=== PATIENT | male | born 1990 | race African-American/Black ===

== ENCOUNTER 2017-01-13 05:51 | Emergency (ER) | payer OTHER ==
[2017-01-13 06:05] VITALS: BMI 20.5
--- NOTE | 2017-01-13 06:07 | PDOC ---
History of Present Illness - General Chief Complaint: Shortness of Breath Stated Complaint: S.O.B. Time Seen by Provider: 01/13/17 06:01 History Source: Patient Exam Limitations: No Limitations - History of Present Illness Initial Comments: 01/13/17 06:09 26-year-old male without any medical history presents to the emergency department without any complaints. Patient states he was experiencing midsternal 6/10 dull nonradiating intermittent discomfort which was exacerbated on touch and alleviated at rest without fever, chills, nausea/vomiting/diarrhea , jaw pain, neck pain, shortness of breath, abdominal pains, ext numbness or tingling sensation. Patient states the pain has subsided 100% 5-7 days ago but decided to come to the emergency department to be checked out anyway. Patient states the pain started 3 weeks ago after throwing rolled up a newspaper over his head/while extending his left arm while. Pt delivers newspaper in the mornings. Patient denies recent surgery, prolonged sitting, recent flight. Presenting Symptoms: Chest Pain (x1week ago) Timing/Duration: reports: resolved prior to arrival Severity/Quality: reports: mild Location: reports: substernal Chest Pain Radiation: reports: no radiation Activities at Onset: reports: exertion Prior Chest Pain/Cardiac Workup: reports: No prior chest pain Past History - Travel Traveled outside of the country in the last 30 days: No Close contact w/someone who was outside of country & ill: No - Past Medical History Allergies/Adverse Reactions: Allergies Allergy/AdvReac Type Severity Reaction Status Date / Time No Known Allergies Allergy Verified 01/13/17 06:01 Home Medications: Ambulatory Orders Ibuprofen 600 mg PO Q6H PRN #18 tablet 08/30/16 Disorders: Yes (UTI) Suicide Attempt (Hx): No - Immunization History Immunization Up to Date: Yes - Psycho/Social/Smoking Cessation Hx Anxiety: No Suicidal Ideation: No Smoking Status: No Smoking History: Never smoked Have you smoked in the past 12 months: No Number of Cigarettes Smoked Daily: 3 Information on smoking cessation initiated: No Hx Alcohol Use: No Drug/Substance Use Hx: No Substance Use Type: Alcohol, Marijuana Review of Systems - Review of Systems Able to Perform ROS?: Yes Comments:: 01/13/17 06:08 CONSTITUTIONAL: Absent: fever, chills, diaphoresis, generalized weakness, malaise, loss of appetite HEENT: Absent: rhinorrhea, nasal congestion, throat pain, throat swelling, difficulty swallowing, mouth swelling, ear pain, eye pain, visual Changes CARDIOVASCULAR: Absent: chest pain, loss of consciousness, palpitations, irregular heart rate, peripheral edema RESPIRATORY: Absent: cough, shortness of breath, dyspnea with exertion, orthopnea, wheezing, stridor, hemoptysis GASTROINTESTINAL: Absent: abdominal pain, abdominal distension, nausea, vomiting, diarrhea, constipation, melena, hematochezia GENITOURINARY: Absent: dysuria, frequency, urgency, hesitancy, hematuria, flank pain, genital pain MUSCULOSKELETAL: Absent: myalgia, arthralgia, joint swelling SKIN: Absent: rash, itching, pallor HEMATOLOGIC/IMMUNOLOGIC: Absent: easy bleeding, easy bruising, lymphadenopathy, frequent infections ENDOCRINE: Absent: unexplained weight gain, unexplained weight loss, heat intolerance, cold intolerance NEUROLOGIC: Absent: headache, focal weakness or paresthesias, dizziness, unsteady gait, seizure, mental status changes, bladder or bowel incontinence PSYCHIATRIC: Absent: anxiety, depression, suicidal or homicidal ideation, hallucinations. Is the patient limited Portuguese proficient: No *Physical Exam - Vital Signs Last Vital Signs Temp Pulse Resp BP Pulse Ox 97.5 F L 78 20 122/79 99 01/13/17 06:03 01/13/17 06:03 01/13/17 06:03 01/13/17 06:03 01/13/17 06:03 - Physical Exam Comments: 01/13/17 06:08 GENERAL: Well developed, well nourished. Awake and alert. No acute distress. HEENT: Normocephalic, atraumatic. PERRLA, EOMI. No conjunctival pallor. Sclera are non- icteric. Moist mucous membranes. Oropharynx is clear. NECK: Supple. Full ROM. No JVD. Carotid pulses 2+ and symmetric, without bruits. No thyromegaly. No lymphadenopathy. CARDIOVASCULAR: Regular rate and rhythm. No murmurs, rubs, or gallops. Distal pulses are 2+ and symmetric. PULMONARY: No evidence of respiratory distress. Lungs clear to auscultation bilaterally. No wheezing, rales or rhonchi. ABDOMINAL: Soft. Non-tender. Non-distended. No rebound or guarding. No organomegaly. Normoactive bowel sounds. MUSCULOSKELETAL Normal range of motion at all joints. No bony deformities or tenderness. No CVA tenderness. EXTREMITIES: No cyanosis. No clubbing. No edema. No calf tenderness. SKIN: Warm and dry. Normal capillary refill. No rashes. No jaundice. NEUROLOGICAL: Alert, awake, appropriate. Cranial nerves 2-12 intact. No deficits to light touch and temperature in face, upper extremities and lower extremities. No motor deficits in the in face, upper extremities and lower extremities. Normoreflexic in the upper and lower extremities. Normal speech. Toes are down- going bilaterally. Gait is normal without ataxia. PSYCHIATRIC: Cooperative. Good eye contact. Appropriate mood and affect. Heart Score/ECG Review - History History: Slightly suspicious - Electrocardiogram EKG: Normal (peaked T waves V4 and V5) - Age Age: >/= 65 - Risk Factors Based on the list above the patient has:: No risk factors known - Troponin Troponin: </= normal limit - Score Heart Score - Total: 2 - ECG Intrepretation Rhythm: Regular Rhythm ED Treatment Course - LABORATORY CBC & Chemistry Diagram: 01/13/17 06:20 01/13/17 06:20 - ADDITIONAL ORDERS Additional order review: Laboratory Results 01/13/17 01/13/17 06:20 06:20 Sodium 141 Potassium 4.1 Chloride 104 Carbon Dioxide 29 Anion Gap 8 BUN 13 D Creatinine 1.1 Creat Clearance w eGFR > 60 Random Glucose 76 D Calcium 8.9 Total Bilirubin 0.3 D AST 19 ALT 17 D Alkaline Phosphatase 49 Creatine Kinase 282 Creatine Kinase Index 0.6 CK-MB (CK-2) 1.588 CK-MB (CK-2) Rel Index Cancelled Troponin I < 0.02 Total Protein 7.3 Albumin 4.2 01/13/17 06:20 RBC 4.28 MCV 93.1 MCHC 32.9 RDW 13.3 MPV 9.8 Neutrophils % 39.5 L D Lymphocytes % 44.9 H D Monocytes % 9.1 Eosinophils % 5.8 H D Basophils % 0.7 - RADIOLOGY Radiology Studies Ordered: Category Date Time Status CHEST PA & LAT [RAD] Stat Radiology 01/13/17 06:23 Ordered *DC/Admit/Observation/Transfer Diagnosis at time of Disposition: No complaint of pain, Chest discomfort - Discharge Dispostion Disposition: HOME Condition at time of disposition: Stable Admit: No - Referrals Referrals: Luis Enrique Lyn MD [Primary Care Provider] - Macario Delgado MD [Staff Physician] - - Patient Instructions Printed Discharge Instructions: DI for Atypical Chest Pain Additional Instructions: Follow-up with your primary care physician and the brewmaster listed on your discharge. Return back to the emergency department for recurrent
[2017-01-13 06:40] LABS: BASOPHIL 0.7 % (0-2.0); EOSINOPHIL 5.8 % (0-4.5); MCH 30.7 pg (25.7-33.7); MCHC 32.9 g/dl (32.0-35.9); MEAN CELL VOLUME 93.1 fl (80-96); MEAN PLT VOLUME 9.8 fl (7.5-11.1); NEUTROPHILS 39.5 % (42.8-82.8); PLATELET COUNT 153 K/MM3 (134-434); RDW 13.3 % (11.9-15.9); WHITE BLOOD COUNT 6.4 K/mm3 (4.0-10.0)
[2017-01-13 06:59] LABS: ALBUMIN 4.2 g/dl (3.4-5.0); ANION GAP 8 (8-16); BILIRUBIN,TOTAL 0.3 mg/dL (0.2-1.0); CALCIUM 8.9 mg/dL (8.5-10.1); CO2 29 mmol/L (21-32); COCKROFT - GAULT 102.63; CREATININE 1.1 mg/dL (0.7-1.3); GLUCOSE,RANDOM 76 mg/dL (74-106); SGOT/AST 19 U/L (15-37); SGPT/ALT 17 U/L (12-78); TOT PROT 7.3 g/dl (6.4-8.2)
[2017-01-13 07:02] LABS: ALK PHOS 49 U/L (45-117); TROPONIN I < 0.02 ng/ml (0.00-0.05)
[2017-01-13 08:28] VITALS: BP 129/84; PULSE 80; TEMP 97.7
--- NOTE | 2017-01-13 11:16 | EKG ---
Test Reason : Blood Pressure : / mmHG Vent. Rate : 061 BPM Atrial Rate : 061 BPM P-R Int : 216 ms QRS Dur : 104 ms QT Int : 382 ms P-R-T Axes : 072 100 046 degrees QTc Int : 384 ms SINUS RHYTHM WITH 1ST DEGREE A-V BLOCK INCOMPLETE RIGHT BUNDLE BRANCH BLOCK POSSIBLE RIGHT VENTRICULAR HYPERTROPHY ABNORMAL ECG NO PREVIOUS ECGS AVAILABLE Confirmed by ROZ URIBE MD ([id number]) on 01/13/2017 11:16:19 AM Referred By: Confirmed By:ROZ URIBE MD
== END 2017-01-13 08:31 | disposition home or self-care (01) ==
LOC: JER 05:51
DX: R07.89 Other chest pain (principal)
CPT/HCPCS: 36415; 71020-TC; 80053; 82550; 82553; 84484; 85025; 93005; 93010; 99282-25

== ENCOUNTER 2017-03-13 21:45 | Emergency (ER) | payer OTHER ==
[2017-03-13 21:56] VITALS: BP 110/54; PULSE 76; TEMP 98; BMI 20.5
--- NOTE | 2017-03-13 22:59 | PDOC ---
History of Present Illness <Meme Dixon - Last Filed: 03/13/17 22:59> - History of Present Illness Initial Comments: 03/13/17 22:59 The patient is a 26 year old male, with no significant past medical history, who presents to the emergency department with injury to his right first toe after playing basketball yesterday. The patient states he jammed his right first toe and reports pain over the nail of the right toe. He states he noticed his nail was lifted and bleeding today and presents for evaluation. He denies any other complaint at this time. Allergies: NKDA <Ann-Marie Wright - Last Filed: 03/13/17 23:00> - General Chief Complaint: Injury Stated Complaint: INJURY Time Seen by Provider: 03/13/17 22:09 Past History - Past Medical History Asthma: Yes (CHILDHOOD) Disorders: Yes (UTI) Suicide Attempt (Hx): No - Immunization History Immunization Up to Date: Yes - Psycho/Social/Smoking Cessation Hx Anxiety: No Suicidal Ideation: No Smoking Status: No Smoking History: Current every day smoker Have you smoked in the past 12 months: Yes Number of Cigarettes Smoked Daily: 3 Information on smoking cessation initiated: No Hx Alcohol Use: No Drug/Substance Use Hx: Yes (marijuana) Substance Use Type: Alcohol, Marijuana <Meme Dixon - Last Filed: 03/13/17 22:59> <Ann-Marie Wright - Last Filed: 03/13/17 23:00> - Past Medical History Allergies/Adverse Reactions: Allergies Allergy/AdvReac Type Severity Reaction Status Date / Time No Known Allergies Allergy Verified 03/13/17 21:57 Home Medications: Ambulatory Orders Sulfamethoxazole/Trimethoprim [Bactrim Ds -] 1 tab PO BID #14 tablet 03/13/17 Review of Systems - Review of Systems Able to Perform ROS?: Yes Comments:: 03/13/17 22:59 CONSTITUTIONAL: Absent: fever, no chills, no fatigue MUSCULOSKELETAL: Absent: back pain, no arthralgia, no myalgia SKIN: (+) pain to right toe. Absent: rash <Ann-Marie Wright - Last Filed: 03/13/17 23:00> *Physical Exam - Vital Signs Last Vital Signs Temp Pulse Resp BP Pulse Ox 98.0 F 76 18 110/54 98 03/13/17 21:53 03/13/17 21:53 03/13/17 21:53 03/13/17 21:53 03/13/17 21:53 <Meme Dixon - Last Filed: 03/13/17 22:59> - Vital Signs Last Vital Signs Temp Pulse Resp BP Pulse Ox 98.0 F 76 18 110/54 98 03/13/17 21:53 03/13/17 21:53 03/13/17 21:53 03/13/17 21:53 03/13/17 21:53 - Physical Exam Comments: 03/13/17 22:59 GENERAL: Well-appearing, well-nourished. No apparent distress. EXTREMITIES: (+) slightly avulsed toenail of right hallux with slight discharge, no bleeding. No erythema or warmth. Normal ROM in all four extremities. No gross deformities. SKIN: Warm, dry. No rash NEUROLOGICAL: No focal neurological deficits. <Ann-Marie Wright - Last Filed: 03/13/17 23:00> *DC/Admit/Observation/Transfer - Discharge Dispostion Admit: No <Meme Dixon - Last Filed: 03/13/17 22:59> - Attestations Scribe Attestion: 03/13/17 22:59 Documentation prepared by Ann-Marie Wright, acting as medical technologist microbiology for Emergency Dept,Meme HUNTER <Ann-Marie Wright - Last Filed: 03/13/17 23:00> Diagnosis at time of Disposition: Nailbed injury - Discharge Dispostion Disposition: HOME - Prescriptions Prescriptions: Sulfamethoxazole/Trimethoprim [Bactrim Ds -] 1 tab PO BID #14 tablet - Referrals Referrals: Quique Melton MD [Staff Physician] - - Patient Instructions Printed Discharge Instructions: DI for Nail Bed Injury Additional Instructions: Please take medication as prescribed and complete the entire course of medication. As discussed, part of your nail may come off but it will grow back. Follow up with your dye machine operator if your foot becomes red, hot, or swollen. If you develop any fever, chills, nausea, vomiting, diarrhea or any new or worsening symptoms, please return to the ER.
== END 2017-03-13 23:01 | disposition home or self-care (01) ==
LOC: JERFT 21:45
DX: S91.201A Unspecified open wound of right great toe with damage to nail, initial encounter (principal); W22.8XXA Striking against or struck by other objects, initial encounter; Y93.67 Activity, basketball; Y92.310 Basketball court as the place of occurrence of the external cause; Y99.8 Other external cause status
CPT/HCPCS: 99281-25

== ENCOUNTER 2018-07-15 08:31 | Emergency (ER) | payer SELFPAY ==
[2018-07-15 08:55] VITALS: BP 109/76; PULSE 63; TEMP 98.3; BMI 20.7
--- NOTE | 2018-07-15 09:10 | PDOC ---
History of Present Illness - General Chief Complaint: Pain, Acute Stated Complaint: FALL Time Seen by Provider: 07/15/18 09:06 History Source: Patient Exam Limitations: No Limitations - History of Present Illness Initial Comments: 07/15/18 09:53 Patient is a 28-year-old male with no past medical history who presents to the emergency department today for right leg pain status post mechanical trip and fall down a flight of steps on Sunday07/13/18. Patient states that he fell on his butt down the stairs. He states that the pain is mostly in his right quad and his right ankle. Pt states he is walking with a limp. Denies head injury, LOC, lightheadedness and dizziness. Past History - Travel Traveled outside of the country in the last 30 days: No Close contact w/someone who was outside of country & ill: No - Past Medical History Allergies/Adverse Reactions: Allergies Allergy/AdvReac Type Severity Reaction Status Date / Time No Known Allergies Allergy Verified 07/15/18 08:51 Home Medications: Ambulatory Orders Sulfamethoxazole/Trimethoprim [Bactrim Ds -] 1 tab PO BID #14 tablet 03/13/17 Ibuprofen 800 mg PO TID #30 tablet 07/15/18 Asthma: Yes (CHILDHOOD) COPD: No Disorders: Yes (UTI) - Immunization History Immunization Up to Date: Yes - Suicide/Smoking/Psychosocial Hx Smoking Status: No Smoking History: Never smoked Have you smoked in the past 12 months: Yes Number of Cigarettes Smoked Daily: 3 Hx Alcohol Use: No Drug/Substance Use Hx: Yes (marijuana) Substance Use Type: Alcohol, Marijuana Review of Systems - Review of Systems Able to Perform ROS?: Yes Comments:: 07/15/18 09:52 CONSTITUTIONAL: Absent: fever, chills, diaphoresis, generalized weakness, malaise, loss of appetite HEENT: Absent: rhinorrhea, nasal congestion, throat pain, throat swelling, difficulty swallowing, mouth swelling, ear pain, eye pain, visual Changes CARDIOVASCULAR: Absent: chest pain, loss of consciousness, palpitations, irregular heart rate, peripheral edema RESPIRATORY: Absent: cough, shortness of breath, dyspnea with exertion, orthopnea, wheezing, stridor, hemoptysis GASTROINTESTINAL: Absent: abdominal pain, abdominal distension, nausea, vomiting, diarrhea, constipation, melena, hematochezia GENITOURINARY: Absent: dysuria, frequency, urgency, hesitancy, hematuria, flank pain, genital pain MUSCULOSKELETAL: Present: R leg pain Absent: myalgia, joint swelling SKIN: Absent: rash, itching, pallor HEMATOLOGIC/IMMUNOLOGIC: Absent: easy bleeding, easy bruising, lymphadenopathy, frequent infections ENDOCRINE: Absent: unexplained weight gain, unexplained weight loss, heat intolerance, cold intolerance NEUROLOGIC: Absent: headache, focal weakness or paresthesias, dizziness, unsteady gait, seizure, mental status changes, bladder or bowel incontinence PSYCHIATRIC: Absent: anxiety, depression, suicidal or homicidal ideation, hallucinations. Is the patient limited Georgian proficient: No *Physical Exam - Vital Signs Last Vital Signs Temp Pulse Resp BP Pulse Ox 98.3 F 63 18 109/76 99 07/15/18 08:52 07/15/18 08:52 07/15/18 08:52 07/15/18 08:52 07/15/18 08:52 - Physical Exam Comments: 07/15/18 09:10 GENERAL: Well developed, well nourished. Awake and alert. No acute distress. HEENT: Normocephalic, atraumatic. PERRLA, EOMI. No conjunctival pallor. Sclera are non- icteric. Moist mucous membranes. Oropharynx is clear. NECK: Supple. Full ROM. No JVD. Carotid pulses 2+ and symmetric, without bruits. No thyromegaly. No lymphadenopathy. MUSCULOSKELETAL Pain with straight leg raise to the R quad. R knee mildly swollen. TTP of the Lateral R malleolus. Pain with dorsiflexion. No swelling noted to the R ankle. Normal range of motion at all other joints. No bony deformities or tenderness. No CVA tenderness. EXTREMITIES: No cyanosis. No clubbing. No edema. No calf tenderness. SKIN: Warm and dry. Normal capillary refill. No rashes. No jaundice. NEUROLOGICAL: Alert, awake, appropriate. Cranial nerves 2-12 intact. No deficits to light touch and temperature in face, upper extremities and lower extremities. No motor deficits in the in face, upper extremities and lower extremities. Normoreflexic in the upper and lower extremities. Normal speech. Toes are down- going bilaterally. Gait is normal without ataxia. PSYCHIATRIC: Cooperative. Good eye contact. Appropriate mood and affect. Medical Decision Making - Medical Decision Making 07/15/18 10:17 Patient is a 28-year-old male with no past medical history who presents him her she department with right leg pain status post falling down a flight of stairs 2 days ago. X-ray shows a high sitting knee In the lateral view. Cannot rule out patellar tendon pathology. We'll place patient in knee immobilizer and give crutches. Ortho follow-up given. Ankle and tib-fib appear unremarkable at this time. Ankle with evidence of old fracture to the medial malleolus however no tenderness to palpation of the medial malleolus at this time. Pain improved with Motrin. Discharge home I discussed the physical exam findings, ancillary test results and final diagnoses with the patient. I answered all of the patient's questions. The patient was satisfied with the care received and felt comfortable with the discharge plan and treatment plan. The Patient agrees to follow up with the primary care physician/specialist within 24-72 hours. Return precautions were given. *DC/Admit/Observation/Transfer Diagnosis at time of Disposition: Strain of quadriceps tendon Qualifiers: Encounter type: initial encounter Laterality: right Qualified Code(s): S76.111A - Strain of right quadriceps muscle, fascia and tendon, initial encounter - Discharge Dispostion Disposition: HOME Condition at time of disposition: Stable Decision to Admit order: No - Referrals Referrals: Perry Earl MD [Staff Physician] - - Patient Instructions Printed Discharge Instructions: DI for Quadriceps Strain Additional Instructions: Your knee x-ray shows that the kneecap may be sitting a little high. This could indicate a patellar tendon injury. Please wear the knee immobilizer during the day and use the crutches. Do not place weight on the leg. Please take Motrin 800 mg every 8 hours as needed for pain. Please follow up with orthopedics this week. A referral has been provided. Return to the emergency department for worsening pain, numbness and tingling down the extremity, or if you have any changes in your symptoms. - Post Discharge Activity Forms/Work/School Notes: Back to Work
[2018-07-15] MEDS ORDERED: IBUPROFEN 400 MG TABLET (FP) PO ONE ×2 (09:26→09:30)
== END 2018-07-15 10:50 | disposition home or self-care (01) ==
LOC: JERFT 08:31
DX: S76.111A Strain of right quadriceps muscle, fascia and tendon, initial encounter (principal); W10.8XXA Fall (on) (from) other stairs and steps, initial encounter; Y93.89 Activity, other specified; Y92.89 Other specified places as the place of occurrence of the external cause; R26.89 Other abnormalities of gait and mobility
CPT/HCPCS: 73562-TC-RT-FY; 73590-TC-RT-FY; 73610-TC-RT-FY; 73630-TC-RT-FY; 99281-25

== ENCOUNTER 2019-08-31 07:49 | Emergency (ER) | payer SELFPAY ==
[2019-08-31 07:55] VITALS: BP 127/68; PULSE 71; TEMP 97.7; BMI 20.3
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
== END 2019-08-31 08:42 | disposition home or self-care (01) ==
LOC: JERFT 07:49
DX: S69.92XA Unspecified injury of left wrist, hand and finger(s), initial encounter (principal); S69.91XA Unspecified injury of right wrist, hand and finger(s), initial encounter; W22.01XA Walked into wall, initial encounter; Y93.89 Activity, other specified; Y92.89 Other specified places as the place of occurrence of the external cause; J45.909 Unspecified asthma, uncomplicated
CPT/HCPCS: 73130-TC-LT-FY; 73130-TC-RT-FY; 99282-25

== ENCOUNTER 2019-09-08 22:01 | Emergency (ER) | payer SELFPAY ==
[2019-09-08 22:12] VITALS: BP 107/54; PULSE 71; TEMP 97.6
--- NOTE | 2019-09-08 23:46 | PDOC ---
*Physical Exam - Vital Signs Last Vital Signs Temp Pulse Resp BP Pulse Ox 97.6 F 71 18 107/54 L 98 09/08/19 22:09 09/08/19 22:09 09/08/19 22:09 09/08/19 22:09 09/08/19 22:09 Medical Decision Making - Medical Decision Making 09/08/19 23:46 Patient seen by the advanced practice provider under my direct supervision. Ancillary testing reviewed as necessary. I agree with plan as outlined by the advanced practice provider. Discharge - Discharge Information Problems reviewed: Yes Clinical Impression/Diagnosis: Thumb injury Qualifiers: Encounter type: subsequent encounter Laterality: left Qualified Code(s): S69.92XD - Unspecified injury of left wrist, hand and finger(s), subsequent encounter Sprain of ulnar collateral ligament of metacarpophalangeal (MCP) joint of thumb Qualifiers: Encounter type: initial encounter Laterality: left Qualified Code(s): S63.642A - Sprain of metacarpophalangeal joint of left thumb, initial encounter Disposition: HOME - Follow up/Referral Referrals: Yinka Dumont MD [Staff Physician] - Call tomorrow Darrell Jolly MD [Primary Care Provider] - - Patient Discharge Instructions Patient Printed Discharge Instructions: DI for Ulnar Collateral Ligament Sprain of Thumb Additional Instructions: Use the thumb splint for comfort. It is very important that you follow-up with a hand doctor as soon as possible.A referral was given to you today. Take ibuprofen every 6 hours as needed for pain. Return to the emergency room for any worsening symptoms. - Post Discharge Activity Work/Back to School Note: Back to Work
[2019-09-09] MEDS ORDERED: IBUPROFEN 600 MG TABLET (FP) PO ONE ×2 (00:34→01:09)
--- NOTE | 2019-09-09 00:34 | PDOC ---
History of Present Illness - General Chief Complaint: Injury Stated Complaint: LT HAND INJURY Time Seen by Provider: 09/08/19 23:31 History Source: Patient - History of Present Illness Initial Comments: 09/09/19 29-year-old male complaining of left thumb pain worse with movement. Patient report an injury 1 week ago and was seen. X-ray at the recent visit reviewed showed no acute fracture. Patient reports that he has not followed up with orthopedic. No past medical history Past History - Past Medical History Allergies/Adverse Reactions: Allergies Allergy/AdvReac Type Severity Reaction Status Date / Time No Known Allergies Allergy Verified 09/08/19 22:12 Home Medications: Ambulatory Orders Sulfamethoxazole/Trimethoprim [Bactrim Ds -] 1 tab PO BID #14 tablet 03/13/17 Ibuprofen 800 mg PO TID #30 tablet 07/15/18 Asthma: Yes (CHILDHOOD) COPD: No Disorders: Yes (UTI) - Immunization History Immunization Up to Date: Yes - Psycho Social/Smoking Cessation Hx Smoking Status: No Smoking History: Current every day smoker Have you smoked in the past 12 months: Yes Number of Cigarettes Smoked Daily: 3 Information on smoking cessation initiated: No Hx Alcohol Use: No Drug/Substance Use Hx: Yes (marijuana) Substance Use Type: Alcohol, Marijuana Review of Systems - Review of Systems Able to Perform ROS?: Yes Is the patient limited Khmer proficient: No Musculoskeletal: Yes: Other (left thump pain) *Physical Exam - Vital Signs Last Vital Signs Temp Pulse Resp BP Pulse Ox 97.6 F 71 18 107/54 L 98 09/08/19 22:09 09/08/19 22:09 09/08/19 22:09 09/08/19 22:09 09/08/19 22:09 - Physical Exam General Appearance: Yes: Appropriately Dressed Extremity: positive: Normal Range of Motion, Other (pain to thumb with flexing) Integumentary: positive: Normal Color, Dry, Warm Neurologic: positive: Fully Oriented, Alert ED Progress Note - Progress Note Progress Note: 09/09/19 01:10 A: thumb injury likely ulnar collateral ligament injury? P: xray no acute fracture nsaids prompt hand / ortho follow up discussed with patient. patient verbalized understanding 09/09/19 01:12 09/09/19 04:29 Discharge - Discharge Information Problems reviewed: Yes Clinical Impression/Diagnosis: Thumb injury Qualifiers: Encounter type: subsequent encounter Laterality: left Qualified Code(s): S69.92XD - Unspecified injury of left wrist, hand and finger(s), subsequent encounter Sprain of ulnar collateral ligament of metacarpophalangeal (MCP) joint of thumb Qualifiers: Encounter type: initial encounter Laterality: left Qualified Code(s): S63.642A - Sprain of metacarpophalangeal joint of left thumb, initial encounter Condition: Good Disposition: HOME - Follow up/Referral Referrals: Darrell Jolly MD [Primary Care Provider] - Yinka Dumont MD [Staff Physician] - Call tomorrow - Patient Discharge Instructions Patient Printed Discharge Instructions: DI for Ulnar Collateral Ligament Sprain of Thumb Additional Instructions: Use the thumb splint for comfort. It is very important that you follow-up with a hand doctor as soon as possible.A referral was given to you today. Take ibuprofen every 6 hours as needed for pain. Return to the emergency room for any worsening symptoms. - Post Discharge Activity Work/Back to School Note: Back to Work
== END 2019-09-09 01:25 | disposition home or self-care (01) ==
LOC: JER 22:01
PROC: 2W3HX1Z Immobilization of Left Thumb using Splint (ICD-10-PCS; principal; 2019-09-08)
DX: S63.642D Sprain of metacarpophalangeal joint of left thumb, subsequent encounter (principal); X58.XXXD Exposure to other specified factors, subsequent encounter; J45.909 Unspecified asthma, uncomplicated
CPT/HCPCS: 73130-TC-LT-FY; 99282-25

== ENCOUNTER 2020-03-21 10:13 | Emergency (ER) | payer OTHER ==
[2020-03-21] MEDS ORDERED: KETOROLAC TROMETHAMINE 60 MG/2 ML VIAL IM ONE (10:20)
[2020-03-21 10:21] VITALS: BP 105/78; PULSE 94; TEMP 98.2
[2020-03-21] MEDS ORDERED: KETOROLAC TROMETHAMINE 60 MG/2 ML VIAL ONE (10:22)
--- NOTE | 2020-03-21 10:26 | PDOC ---
History of Present Illness - General Chief Complaint: Back Pain Stated Complaint: BACK PAIN Time Seen by Provider: 03/21/20 10:15 History Source: Patient Exam Limitations: No Limitations - History of Present Illness Initial Comments: 03/21/20 10:21 29 y/o male with left lower back pain since Sunday. Patient denies fall or trauma. Started a new job and has been doing some lifting. Denies hx of kidney stones. No dysuria or hematuria. Took a Percocet from his yesterday but no pain medication today. Hurts more with movement. No abdominal pain, fever or chills. No weakness or numbness. No incontinence. Is this a multiple visit Asthma Patient?: No Severity: moderate Associated Symptoms: denies: weakness Past History - Medical History Allergies/Adverse Reactions: Allergies Allergy/AdvReac Type Severity Reaction Status Date / Time No Known Allergies Allergy Verified 03/21/20 10:14 Home Medications: Ambulatory Orders Cyclobenzaprine HCl 10 mg PO TID #10 tablet 03/21/20 Medical Marijuana Oil 1 dose PO ASDIR 03/21/20 Asthma: Yes (CHILDHOOD) COPD: No Disorders: Yes (UTI) Other medical history: insomnia - Immunization History Immunization Up to Date: Yes - Psycho-Social/Smoking History Smoking Status: No Smoking History: Never smoked Have you smoked in the past 12 months: No Number of Cigarettes Smoked Daily: 3 Information on smoking cessation initiated: No - Substance Abuse Hx (Audit-C & DAST Scrn) How often the patient has a drink containing alcohol: Never Score: In Men: 4 or > Positive; In Women: 3 or > Positive: 0 Screen Result (Pos requires Nsg. Audit-10AR): Negative In the last yr the pt used illegal drug/Rx for NonMed reason: No Score: Yes response is considered Positive: 0 Screen Result (Positive result requires Nsg. DAST-10): Negative Review of Systems - Review of Systems Able to Perform ROS?: Yes Is the patient limited [place] proficient: No Constitutional: No: Chills, Fever Respiratory: No: Cough, Shortness of Breath Cardiac (ROS): No: Chest Pain ABD/GI: No: Vomiting : No: Dysuria, Frequency, Flank Pain, Hematuria Musculoskeletal: Yes: Back Pain Neurological: No: Paresthesia, Tingling All Other Systems: Reviewed and Negative *Physical Exam - Vital Signs Last Vital Signs Temp Pulse Resp BP Pulse Ox 98.2 F 94 H 18 105/78 100 03/21/20 10:13 03/21/20 10:13 03/21/20 10:13 03/21/20 10:13 03/21/20 10:13 - Physical Exam General Appearance: Yes: Nourished, Appropriately Dressed, Mild Distress. No: Apparent Distress, Disheveled HEENT: positive: EOMI, AARON, Normal ENT Inspection, Pharynx Normal Neck: positive: Trachea midline, Normal Thyroid, Supple. negative: Tender, Rigid Respiratory/Chest: positive: Lungs Clear, Normal Breath Sounds. negative: Chest Tender, Respiratory Distress Cardiovascular: positive: Regular Rhythm, Regular Rate, S1, S2. negative: Edema, JVD, Murmur Vascular Pulses: Femoral (R): 4+, Femoral (L): 4+, Carotid (R): 4+, Carotid (L): 4+, Dorsalis-Pedis (R): 4+, Doralis-Pedis (L): 4+ Gastrointestinal/Abdominal: positive: Normal Bowel Sounds, Flat, Soft. negative: Tender, Organomegaly, Pulsatile Mass Lymphatic: negative: Adenopathy, Tenderness, Other Musculoskeletal: positive: Normal Inspection, Other (tenderness to left paravertebral muscles lumbar area, no spinous process tenderness, positive SLR test on left). negative: CVA Tenderness, Vertebral Tenderness Extremity: positive: Normal Capillary Refill, Normal Inspection, Normal Range of Motion Integumentary: positive: Normal Color, Dry, Warm Neurologic: positive: corn chip maker II-XII NML intact (strength 5+/5 b/l in UE and LE, no focal deficits noted), Fully Oriented, Alert, Normal Mood/Affect, Normal Response, Motor Strength 5/5 ED Treatment Course - ADDITIONAL ORDERS Additional order review: 03/21/20 10:26 Patient with left sided low back pain Will obtain x-ray and UA Pt in agreement with plan 03/21/20 11:00 Patient resting comfortably, no neuro deficits Will prescribe Flexeril MRI if worsen Pt in agreement [facility] plan UA shows no blood r/o kidney stone 03/21/20 11:03 Lumbar/sacral x-ray No fx seen - RADIOLOGY Radiology Studies Ordered: Category Date Time Status SPINE-LUMBAR SACRAL [RAD] Stat Radiology 03/21/20 10:20 Ordered Discharge - Discharge Information Problems reviewed: Yes Clinical Impression/Diagnosis: Lumbar strain Qualifiers: Encounter type: initial encounter Qualified Code(s): S39.012A - Strain of muscle, fascia and tendon of lower back, initial encounter Condition: Stable Disposition: HOME - Admission No - Follow up/Referral - Patient Discharge Instructions Patient Printed Discharge Instructions: DI for Low Back Pain Additional Instructions: Ice, Motrin, rest Flexeril 10 mg 3x/day as needed If worsen return to ER - Post Discharge Activity
== END 2020-03-21 11:10 | disposition home or self-care (01) ==
LOC: FER 10:13
PROC: 3E0233Z Introduction of Anti-inflammatory into Muscle, Percutaneous Approach (ICD-10-PCS; principal; 2020-03-21)
DX: S39.012A Strain of muscle, fascia and tendon of lower back, initial encounter (principal)
CPT/HCPCS: 72100-TC-FY; 81003; 99284-25